=== PATIENT | male | born 1950 | race Hispanic/Latino ===

== ENCOUNTER 2017-09-30 12:17 | Outpatient (CLI) | payer MEDICARE ==
--- NOTE | 2017-09-30 13:07 | XRay Report ---
XRAY CHEST TWO VIEWS: 09/30/17 12:17:00 CLINICAL: Cough. COMPARISON: 11/06/12 FINDINGS: Cardiomegaly. The pulmonary vessels are normal. The lungs are slightly underexpanded on the frontal view. No airspace disease or pleural effusion. Mild degenerative changes in the spine. IMPRESSION: Cardiomegaly but no CHF.No pneumonia.
== END 2017-09-30 12:18 | disposition home or self-care (01) ==
LOC: SPVIMAG 12:17
PROVIDERS: ATTEND Internal Medicine
DX: I51.7 Cardiomegaly (principal); R05 Cough; M47.894 Other spondylosis, thoracic region
CPT/HCPCS: 71046

== ENCOUNTER 2017-11-18 11:38 | Outpatient (CLI) | payer MEDICARE ==
--- NOTE | 2017-11-18 16:28 | XRay Report ---
XRAY LUMBAR SPINE THREE VIEWS: 11/18/17 11:38:00 CLINICAL: Lumbar strain. FINDINGS: Normal vertebral body height and alignment. Mild disc space narrowing at L5-S1. The rest of the disc spaces are intact. Large anterior osteophytes at L2-3 and smaller osteophytes at other levels. Facet joint sclerosis from L3-4 through L5-S1. No pars defects. The pedicles are intact. No fracture. Normal soft tissues. IMPRESSION: L5-S1 degenerative disease and multilevel facet joint arthropathy.
--- NOTE | 2017-11-18 16:29 | XRay Report ---
XRAY SACRUM AND COCCYX THREE VIEWS: 11/18/17 11:38:00 CLINICAL: Pain. FINDINGS: The sacrum and coccyx are intact. No fracture or bone lesion. Normal sacroiliac joints. Mild L5-S1 degenerative disc disease with disc space narrowing and small anterior osteophytes. Lower lumbar facet joint arthropathy. Normal soft tissues. IMPRESSION: Normal sacrum and coccyx. L5-S1 degenerative disc disease and lower lumbar facet joint arthropathy.
== END 2017-11-18 11:39 | disposition home or self-care (01) ==
LOC: SPVIMAG 11:38
PROVIDERS: ATTEND Internal Medicine
DX: S39.012A Strain of muscle, fascia and tendon of lower back, initial encounter (principal); M51.37 Other intervertebral disc degeneration, lumbosacral region; M12.88 Other specific arthropathies, not elsewhere classified, other specified site; X58.XXXA Exposure to other specified factors, initial encounter; Y93.89 Activity, other specified; Y92.89 Other specified places as the place of occurrence of the external cause; Y99.8 Other external cause status
CPT/HCPCS: 72100; 72220

== ENCOUNTER 2018-02-19 11:45 | Outpatient (CLI) | payer MEDICARE ==
--- NOTE | 2018-02-19 12:23 | XRay Report ---
RIGHT FOOT THREE VIEWS: 02/19/18 CLINICAL: Right foot pain. FINDINGS: No fracture or dislocation. The joint spaces are normal. A small plantar calcaneal enthesophyte. Mild nonspecific soft tissue swelling of the midfoot. No soft tissue air or foreign body. IMPRESSION: Plantar calcaneal enthesopathy and mild nonspecific soft tissue swelling.
--- NOTE | 2018-02-19 16:14 | XRay Report ---
XRAY CHEST TWO VIEWS: 02/19/18 11:45:00 CLINICAL: Wheezing. COMPARISON: 09/30/17 FINDINGS: The heart has decreased in size and is now normal. Normal pulmonary vessels.Mild pulmonary hyperinflation with flattening of the diaphragm on the lateral view. Very mild left lower lobe subsegmental atelectasis. No airspace disease or pleural effusion.Mild degenerative changes in the spine. IMPRESSION: Mild COPD.No CHF or pneumonia.
== END 2018-02-19 11:46 | disposition home or self-care (01) ==
LOC: SPVIMAG 11:45
PROVIDERS: ATTEND Allergy & Immunology
DX: J44.9 Chronic obstructive pulmonary disease, unspecified (principal); J98.11 Atelectasis; M47.899 Other spondylosis, site unspecified; M77.31 Calcaneal spur, right foot
CPT/HCPCS: 71046

== ENCOUNTER 2020-12-05 15:14 | Outpatient (CLI) | payer MEDICARE ==
--- NOTE | 2020-12-05 16:30 | XRay Report ---
Pelvis and left hip 3 views INDICATION: Bursitis FINDINGS: Bilateral femoral heads well-seated in the acetabulum. No acute fracture or dislocation. Pichardo perior and inferior pubic rami appear intact. Sacrum appears normal. Signer Name: Elias Barney MD Signed: 12/05/2020 4:25 PM Workstation Name: [id number]
== END 2020-12-05 15:15 | disposition home or self-care (01) ==
LOC: SPVIMAG 15:14
PROVIDERS: ATTEND Internal Medicine
DX: M70.62 Trochanteric bursitis, left hip (principal)

== ENCOUNTER 2021-08-02 13:03 | Outpatient (CLI) | payer MEDICARE ==
--- NOTE | 2021-08-03 07:30 | XRay Report ---
XR knee 3V LT INDICATION / CLINICAL INFORMATION: CONTUSION OF LEFT KNEE, INITIAL ENCOUNTER. COMPARISON: None available. FINDINGS: BONES/JOINT(S): No acute fracture or subluxation. Previous ACL reconstruction. No significant degener ative change. No joint effusion identified. SOFT TISSUES: No significant abnormality. ADDITIONAL FINDINGS: None. Signer Name: Ge Rodriguez MD Signed: 08/02/2021 3:46 PM Workstation Name: [id number]
== END 2021-08-02 13:04 | disposition home or self-care (01) ==
LOC: SPVIMAG 13:03
PROVIDERS: ATTEND Internal Medicine
DX: S80.02XA Contusion of left knee, initial encounter (principal); X58.XXXA Exposure to other specified factors, initial encounter; Y93.89 Activity, other specified; Y92.89 Other specified places as the place of occurrence of the external cause; Y99.8 Other external cause status